=== PATIENT | female | born 1995 | race African-American/Black ===

== ENCOUNTER 2020-08-02 21:03 | Emergency (ER) | payer MEDICAID ==
[~2020-08-02] VITALS: Ht 175.3 cm; Wt 100.0 kg
[2020-08-02] MEDS ORDERED: KETOROLAC 60MG/2ML VIAL IM ONE (22:15)
[2020-08-02] MEDS ORDERED: IBUP-2029 MT (22:23)
[2020-08-02 22:40] VITALS: BP 112/72
== END 2020-08-02 22:50 | disposition home or self-care (01) ==
LOC: ER 21:03
DX: M54.9 Dorsalgia, unspecified (principal); M54.2 Cervicalgia; J45.909 Unspecified asthma, uncomplicated
CPT/HCPCS: 81025; 96372; 99283; J1885

== ENCOUNTER 2023-12-22 14:41 | Emergency (ER) | payer MEDICAID ==
[~2023-12-22] VITALS: Ht 175.3 cm; Wt 109.0 kg
[~2023-12-22 14:41] MED LIST: IBUP-2029 MT
[2023-12-22 14:53] VITALS: TEMP 98.1; O2SAT 99
[2023-12-22] MEDS: ACETAMINOPHEN 325MG TABLET PO ONE (16:34)
[2023-12-22 18:57] VITALS: BP 110/70; PULSE 74; RESP 20; O2SAT 98
== END 2023-12-22 18:59 | disposition home or self-care (01) ==
LOC: ER 14:41
DX: S09.90XA Unspecified injury of head, initial encounter (principal); M79.631 Pain in right forearm; V49.49XA Driver injured in collision with other motor vehicles in traffic accident, initial encounter; Y93.89 Activity, other specified; Y92.89 Other specified places as the place of occurrence of the external cause; Y99.8 Other external cause status; J45.909 Unspecified asthma, uncomplicated
CPT/HCPCS: 73090; 73562; 99284